=== PATIENT | male | born 1940 | race Caucasian/White ===

== ENCOUNTER → 2016-12-20 | Outpatient (CLI) | payer MEDICARE, OTHER | LOC: MW.CHRC 08:00 | PROVIDERS: ATTEND Family Medicine | DX: Z51.81 Encounter for therapeutic drug level monitoring (principal); Z79.01 Long term (current) use of anticoagulants; I48.91 Unspecified atrial fibrillation | CPT/HCPCS: 85610; 99211 ==

== ENCOUNTER → 2016-12-29 | Outpatient (CLI) | payer MEDICARE, OTHER | LOC: MW.CHFP 08:00 | PROVIDERS: ATTEND Student in an Organized Health Care Education/Training Program | DX: H61.23 Impacted cerumen, bilateral (principal) | CPT/HCPCS: 69209; G0463 ==

== ENCOUNTER → 2017-01-27 | Outpatient (CLI) | payer MEDICARE, OTHER | LOC: MW.CHRC 07:42 | PROVIDERS: ATTEND Family Medicine | DX: I10 Essential (primary) hypertension (principal); E78.00 Pure hypercholesterolemia, unspecified; E11.9 Type 2 diabetes mellitus without complications; I48.91 Unspecified atrial fibrillation | CPT/HCPCS: 36415; 80053; 80061; 83036; 99214 ==

== ENCOUNTER → 2017-02-14 | Outpatient (CLI) | payer MEDICARE, OTHER | LOC: MW.CHRC 08:00 | PROVIDERS: ATTEND Family Medicine | DX: Z51.81 Encounter for therapeutic drug level monitoring (principal); Z79.01 Long term (current) use of anticoagulants; I48.91 Unspecified atrial fibrillation | CPT/HCPCS: 85610; 99211 ==

== ENCOUNTER 2021-05-20 06:27 | Day surgery (SDC) | payer MEDICARE, OTHER ==
[~2021-05-20 06:27] MED LIST: Lactated Ringers 1,000 ML IV SCH
--- NOTE | 2021-05-20 07:20 | PCM.PREANE ---
Preanesthetic Assessment - Anesthesia/Transfusion/Family Hx Anesthesia History: Prior Anesthesia Without Reaction Other Type of Anesthesia Reaction Comment: Denies any known prblm w/1prior anesthesia for colonoscopy Transfusion History: No Prior Transfusion(s) - Review of Systems General: No Symptoms Pulmonary: No Symptoms Cardiovascular: Palpitations Gastrointestinal: No Symptoms Neurological: Paresthesia Other: Reports: Easy Bruising - Physical Assessment NPO Status Date: 05/20/21 NPO Status Time: 00:00 Vital Signs: Last Vital Signs Temp 97.2 F 05/20/21 06:59 Pulse 75 05/20/21 06:59 Resp 16 05/20/21 06:59 BP 135/99 H 05/20/21 06:59 Pulse Ox 97 05/20/21 06:59 Height: 5 ft 10 in Weight: 216 lb ASA Class: 3 Mental Status: Alert & Oriented x3 Airway Class: Mallampati = 2 Dentition: Reports: Dentures Thyro-Mental Finger Breadths: 3 Mouth Opening Finger Breadths: 3 ROM/Head Extension: Full Lungs: Clear to Auscultation, Normal Respiratory Effort Cardiovascular: Regular Rate, Regular Rhythm - Lab Values: Laboratory Last Values POC Glucose 107 mg/dL (70-99) H 05/20/21 06:56 - Allergies Allergies/Adverse Reactions: Allergies Allergy/AdvReac Type Severity Reaction Status Date / Time No Known Allergies Allergy Verified 05/20/21 07:01 - Acknowledgements Anesthesia Type Planned: General Anesthesia Pt an Appropriate Candidate for the Planned Anesthesia: Yes Alternatives and Risks of Anesthesia Discussed w Pt/Guardian: Yes Pt/Guardian Understands and Agrees with Anesthesia Plan: Yes PreAnesthesia Questionnaire HEENT History: Reports: Other (See Below) Other HEENT History: wears glasses, top and bottom dentures Cardiovascular History: Reports: Afib, Blood Clots/VTE/DVT, High Cholesterol, Hypertension Respiratory History: Reports: None Gastrointestinal History: Reports: Hemorrhoids Genitourinary History: Reports: Renal Calculus Other Genitourinary History: currently has kidney stone Musculoskeletal History: Reports: Back Pain, Chronic Neurological History: Reports: None Psychiatric History: Reports: None Endocrine/Metabolic History: Reports: Diabetes, Type II, Obesity/BMI 30+ Hematologic History: Reports: Anticoagulation Therapy Immunologic History: Reports: None Oncologic (Cancer) History: Reports: None Dermatologic History: Reports: None - Past Surgical History Head Surgeries/Procedures: Reports: None HEENT Surgical History: Reports: None Cardiovascular Surgical History: Reports: None Respiratory Surgical History: Reports: None GI Surgical History: Reports: Colonoscopy Male Surgical History: Reports: None Endocrine Surgical History: Reports: None Neurological Surgical History: Reports: None Musculoskeletal Surgical History: Reports: None Oncologic Surgical History: Reports: None Dermatological Surgical History: Reports: Skin Biopsy - SUBSTANCE USE Tobacco Use Status *Q: Former Tobacco User Tobacco Use Within Last Twelve Months: No - HOME MEDS Home Medications: Home Meds Enalapril Maleate 20 mg PO BRK 12/17/14 [History] Metoprolol Succinate [Toprol XL] 100 mg PO BRK 12/17/14 [History] Simvastatin [Zocor] 40 mg PO BEDTIME 12/17/14 [History] metFORMIN HCl [Metformin HCl] 500 mg PO BIDM 12/17/14 [History] Finasteride 5 mg PO DAILY 05/14/21 [History] MO/Pet,Wh/Phenylephrine/Shk Lv [Preparation H Oint] 1 applic RECTAL ASDIRECTED PRN 05/14/21 [History] Tamsulosin HCl [Flomax] 0.4 mg PO DAILY 05/14/21 [History] Warfarin Sodium [Jantoven] 5 mg PO DAILY 05/14/21 [History] Warfarin Sodium [Jantoven] 7.5 mg PO ASDIRECTED 05/14/21 [History] - CURRENT (IN HOUSE) MEDS Current Meds: Current Medications Lactated Ringer's (Ringers, Lactated) 1,000 mls @ 125 mls/hr IV ASDIRECTED [facility] Last Admin: 05/20/21 07:00 Dose: 125 mls/hr Documented by:
[2021-05-20] MEDS ORDERED: propofoL 50 ML ONE (07:39)
[2021-05-20] MEDS ORDERED: Lidocaine 2% 5 ML SDV ONE (07:40)
[2021-05-20] MEDS ORDERED: Propofol 200 MG/20 ML SDV ONE (08:24)
--- NOTE | 2021-05-20 08:57 | PCM.OPNOTE ---
- General Post-Op/Procedure Note Date of Surgery/Procedure: 05/20/21 Operative Procedure(s): EGD with biopsies. Colonscopy with polypectomy Findings: Gastritis Diverticulosis Polyp in the rectum dictation number [id number] Pre Op Diagnosis: tiny calcification in the gastric dome of the stomach. Blood in the stool Post-Op Diagnosis: Gastritis. Diverticulosis. Polyp in the rectum Primary Surgeon: Lawrence Little Pathology: EGD biopsies Rectal polyp Complications: None Condition: Good
--- NOTE | 2021-05-20 09:02 | PCM48HPAN ---
Post Anesthesia Note - EVALUATION WITHIN 48HRS OF ANESTHETIC Vital Signs in Normal Range: Yes Patient Participated in Evaluation: Yes Respiratory Function Stable: Yes Airway Patent: Yes Cardiovascular Function Stable: Yes Hydration Status Stable: Yes Pain Control Satisfactory: Yes Nausea and Vomiting Control Satisfactory: Yes Mental Status Recovered: Yes Vital Signs: Last Vital Signs Temp 97.2 F 05/20/21 06:59 Pulse 75 05/20/21 06:59 Resp 16 05/20/21 06:59 BP 135/99 H 05/20/21 06:59 Pulse Ox 97 05/20/21 06:59
--- NOTE | 2021-05-20 09:02 | PCM.POSTAN ---
POST ANESTHESIA ASSESSMENT - MENTAL STATUS Mental Status: Alert, Oriented - VITAL SIGNS Vital Signs: Last Vital Signs Temp 97.2 F 05/20/21 06:59 Pulse 75 05/20/21 06:59 Resp 16 05/20/21 06:59 BP 135/99 H 05/20/21 06:59 Pulse Ox 97 05/20/21 06:59 - RESPIRATORY Respiratory Status: Respiratory Rate WNL, Airway Patent, O2 Saturation Stable - CARDIOVASCULAR CV Status: Pulse Rate WNL, Blood Pressure Stable - GASTROINTESTINAL GI Status: No Symptoms - POST OP HYDRATION Hydration Status: Adequate & Stable
[2021-05-20 09:06] VITALS: BP 120/78; PULSE 68
--- NOTE | 2021-05-20 11:08 | OR ---
SURGEON: NEFTALY LITTLE MD DATE OF PROCEDURE: 05/20/2021 PREOPERATIVE DIAGNOSES: 1. A tiny calcification in dome of his stomach. 2. Blood in the stool. POSTOPERATIVE DIAGNOSES: 1. Gastritis. 2. Diverticulosis on right and left side. 3. Polyp in the rectum. PRIMARY SURGEON: Neftaly Little MD ANESTHESIA: With anesthesiologist. EXTENT OF EGD: To the duodenum. EXTENT OF COLONOSCOPY: To the cecum. BOWEL PREP: Very good. LIMITATIONS: None. REASON FOR PROCEDURE: The patient is a pleasant 81-year-old gentleman whose last colonoscopy was 5 years ago and this was reported as normal. However, the patient says he has started to have some intermittent blood in his stool. He has been recently started on Coumadin for his atrial fibrillation. The patient also had a CT scan, which showed a tiny calcification in the upper dome of his stomach. Was recommended to have an EGD for further evaluation. The patient denies any swallowing issues. PROCEDURE IN DETAIL: Physical examination was performed. The major risks and benefits associated with the procedure were explained to the patient in detail. The patient verbalized understanding and agreement of the same. The patient was then connected to appropriate monitoring device and IV started. EKG, pulse, pulse oximetry, blood pressure, and capnography were monitored throughout the entire procedure. Continuous oxygen and sedation were provided by the anesthesiologist. The patient was placed in left lateral decubitus position. Sedation was began. After adequate sedation was achieved, an upper endoscope was advanced under direct visualization without difficulty in the upper GI tract. The anatomy and mucosa of the esophagus, GE junction, stomach, pylorus, and duodenum were all inspected. Duodenum appeared normal. Scope was brought up to the stomach. Both retro and antegrade views of the stomach were done. The patient did have some mild gastritis. Biopsies done in the antrum and pylorus area to check for H pylori. On retroflexed view, mucosa looked normal up in the dome and fundus of the stomach. I did do some random biopsies of the area just because there were microcalcifications above the GE junction. GE junction was about 40 cm from incisor. GE junction appeared intact with good squamocolumnar junction. The scope was brought back into the stomach. Stomach was desufflated. Scope was brought up to the esophagus. Esophagus appeared normal. Scope was completely removed, this part of the procedure was terminated. Gloves and scopes were changed. Now, a rectal exam was performed. No rectal masses or polyps were felt, did have a little bit of small noninflamed external hemorrhoid. Now, a well- lubricated Olympus colonoscope was inserted in the rectum, advanced under direct visualization to the level of the cecum. The cecum was identified by both visual and anatomic landmarks. Photographs were taken of the cecal cap. The scope was then slowly withdrawn in somewhat circular fashion looking at the color, texture, anatomy, and integrity of the mucosa from the cecum to the anal canal. The patient had some diverticulosis throughout his right colon and the sigmoid. The patient did have light liquid stool, which was suctioned and irrigated out for a good look at the mucosa. In the rectum, the patient did have a moderate-sized sessile polyp. The polyp was actually fairly soft. It was removed with multiple passes of hot snare. Did take some time because the polyp looked very soft, but I was still able to remove all of the polyp and there was good hemostasis. Scope was then removed and the procedure was terminated. ENDOSCOPIC DIAGNOSES: 1. Gastritis. 2. Diverticulosis, both right and left sided. 3. Polyp in the rectum. RECOMMENDATIONS: Followup colonoscopy and pathology, but will most likely need another one in 6 months to 1 year due to the size of the polyp and that was removed with multiple passings. The patient will follow up in the clinic to go over his EGD. MARIANELA / DELL /[id number]
== END 2021-05-20 09:40 | disposition home or self-care (01) ==
LOC: MW.SDS 06:27
PROVIDERS: ATTEND Surgery
DX: D12.8 Benign neoplasm of rectum (principal); K29.50 Unspecified chronic gastritis without bleeding; B96.81 Helicobacter pylori [H. pylori] as the cause of diseases classified elsewhere; K57.30 Diverticulosis of large intestine without perforation or abscess without bleeding; I48.91 Unspecified atrial fibrillation; I10 Essential (primary) hypertension; E11.9 Type 2 diabetes mellitus without complications; E78.00 Pure hypercholesterolemia, unspecified; F17.210 Nicotine dependence, cigarettes, uncomplicated; Z79.01 Long term (current) use of anticoagulants; Z79.84 Long term (current) use of oral hypoglycemic drugs; Z79.899 Other long term (current) drug therapy
CPT/HCPCS: 43239; 45385; 82947; 88305; 88342; J2704; J7120; 00813; 99100